=== PATIENT | female | born 1995 | race African-American/Black ===

== ENCOUNTER 2021-05-03 17:15 | Inpatient (IN) | payer BC ==
[2021-05-03] MEDS ORDERED: DEXTROSE 5%-LACTATED RINGERS 1,000 ML IV SCH (17:45)
[2021-05-03] MEDS: DEXTROSE 5%-LACTATED RINGERS 1,000 ML IV SCH ×2 (18:40→20:15)
[2021-05-03] MEDS ORDERED: PROMETHAZINE HCL 25 MG/1 ML VIAL IVPUSH ONE (19:37)
[2021-05-03] MEDS ORDERED: BUTORPHANOL TARTRATE 2 MG/ML VIAL IVPB ONE (19:37)
[2021-05-03 19:49] LABS: BASO % 0.2 % (0-2.0); EOS % 0.5 % (0-4.5); HEMATOCRIT 31.1 % (32.4-45.2); HEMOGLOBIN 10.7 GM/dL (10.7-15.3); LYMPH % 11.6 % (8-40); MCH 30.9 pg (25.7-33.7); MCHC 34.3 g/dl (32.0-36.0); MEAN CELL VOLUME 89.9 fl (80-96); MEAN PLT VOLUME 7.5 fl (7.5-11.1); MONO % 11.5 % (3.8-10.2); NEUT % 76.2 % (42.8-82.8); PLATELET COUNT 237 10^3/uL (134-434); RBC 3.46 M/mm3 (3.60-5.2); RDW 14.3 % (11.6-15.6)
[2021-05-03 19:58] LABS: INR 1.01 (0.83-1.09); PROTHROMBIN TIME (PATIENT) 12.2 SEC (9.7-13.0)
[2021-05-03 20:01] LABS: ACTIVATED PTT 24.9 SECONDS (25.2-36.5)
[2021-05-03] MEDS ORDERED: BUTORPHANOL TARTRATE 2 MG/ML VIAL ONE ×2 (20:01→23:17)
[2021-05-03] MEDS ORDERED: PROMETHAZINE HCL 25 MG/1 ML VIAL ONE (20:02)
[2021-05-03 20:09] LABS: CALCIUM 8.6 mg/dL (8.5-10.1)
[2021-05-03 20:13] LABS: CREATININE 0.6 mg/dL (0.55-1.3)
[2021-05-03 20:38] LABS: SYPHILIS W/ RPR CONF NON-REACTIVE (NONREACTIVE)
[2021-05-03 21:06] VITALS: BMI 32.0
[2021-05-03 21:07] LABS: HIV INTERPRETATION NEGATIVE (NEGATIVE)
[2021-05-03] MEDS ORDERED: BUTORPHANOL TARTRATE 1 MG/ML VIAL IVPB ONE (23:18)
[2021-05-04] MEDS ORDERED: OXYTOCIN 20 UNITS in 0.9% NS 20 UNIT/1,000 ML INFUS.BAG IV ONE ×2 (01:23→05:31)
[2021-05-04] MEDS ORDERED: LIDOCAINE HCL 1% PRESERVATIVE FREE - 30ML VIAL ONE (04:28)
[2021-05-04] MEDS ORDERED: IBUPROFEN 600 MG TABLET (FP) PO ONE (05:58)
[2021-05-04] MEDS ORDERED: ACETAMINOPHEN 325 MG TABLET (FP) ONE (05:58)
[2021-05-04] MEDS: IBUPROFEN 600 MG TABLET (FP) PO PRN ×2 (06:00→19:40)
[2021-05-04] MEDS: ACETAMINOPHEN 325 MG TABLET (FP) PO PRN ×2 (06:00→19:41)
[2021-05-04] MEDS ORDERED: WITCH HAZEL 50% (TUCKS) 40 PAD/JAR PAD TP PRN (06:09)
[2021-05-04] MEDS ORDERED: BENZOCAINE 28 GM HEMORRHOIDAL OINTMENT TP PRN (06:09)
[2021-05-04] MEDS ORDERED: OXYTOCIN 20 UNITS in 0.9% NS 1000 ML INFUS.BAG IV ONE (06:13)
[2021-05-04] MEDS: BENZOCAINE 20% 57 GM BOTTLE TP PRN (09:37)
[2021-05-04] MEDS: FERROUS SO4 325 MG TABLET (FP) PO SCH ×2 (09:37→22:57)
[2021-05-04] MEDS: PRENATAL VITAMINS W/ FOLIC ACID TABLET (FP) PO SCH (09:37)
[2021-05-04] MEDS ORDERED: BISACODYL 10 MG SUPP.RECT PR PRN (21:06)
[2021-05-04] MEDS ORDERED: METHYLERGONOVINE MALEATE 0.2 MG/1 ML AMP IM PRN (21:06)
[2021-05-05 08:40] LABS: BASO % 0.5 % (0-2.0); EOS % 0.7 % (0-4.5); HEMATOCRIT 29.3 % (32.4-45.2); HEMOGLOBIN 9.8 GM/dL (10.7-15.3); LYMPH % 18.7 % (8-40); MCH 30.6 pg (25.7-33.7); MCHC 33.4 g/dl (32.0-36.0); MEAN CELL VOLUME 91.7 fl (80-96); MEAN PLT VOLUME 7.9 fl (7.5-11.1); NEUT % 66.1 % (42.8-82.8); PLATELET COUNT 231 10^3/uL (134-434); RDW 14.5 % (11.6-15.6); WHITE BLOOD COUNT 10.4 K/mm3 (4.0-10.0)
[2021-05-05] MEDS: PRENATAL VITAMINS W/ FOLIC ACID TABLET (FP) PO SCH (09:37)
[2021-05-05] MEDS: FERROUS SO4 325 MG TABLET (FP) PO SCH ×3 (09:37→22:43)
[2021-05-05] MEDS: ACETAMINOPHEN 325 MG TABLET (FP) PO PRN (09:37)
[2021-05-05] MEDS: IBUPROFEN 600 MG TABLET (FP) PO PRN (09:37)
[2021-05-05] MEDS: BENZOCAINE 20% 57 GM BOTTLE TP PRN (17:21)
[2021-05-05] MEDS ORDERED: SENNOSIDES/DOCUSATE COMBO (SENNA PLUS) TABLET (UD) PO PRN (22:00)
[2021-05-06] MEDS: PRENATAL VITAMINS W/ FOLIC ACID TABLET (FP) PO SCH (09:50)
[2021-05-06] MEDS: IBUPROFEN 600 MG TABLET (FP) PO PRN (09:52)
[2021-05-06] MEDS: ACETAMINOPHEN 325 MG TABLET (FP) PO PRN (09:53)
[2021-05-06 10:22] VITALS: BP 110/68; PULSE 88; TEMP 98.6
[2021-05-06] MEDS: FERROUS SO4 325 MG TABLET (FP) PO SCH (10:28)
== END 2021-05-06 13:25 | disposition home or self-care (01) | DRG 807 ==
LOC: JDEL 17:15 → JLDR 19:00 → J3W 05-04 09:00
PROVIDERS: ADMIT Obstetrics & Gynecology; ATTEND Obstetrics & Gynecology
PROC: 10E0XZZ Delivery of Products of Conception, External Approach (ICD-10-PCS; principal; 2021-05-04)
PROC: 0HQ9XZZ Repair Perineum Skin, External Approach (ICD-10-PCS; 2021-05-04)
PROC: 10907ZC Drainage of Amniotic Fluid, Therapeutic from Products of Conception, Via Natural or Artificial Opening (ICD-10-PCS; 2021-05-04)
DX: O70.0 First degree perineal laceration during delivery (principal); Z37.0 Single live birth; Z3A.38 38 weeks gestation of pregnancy
CPT/HCPCS: 36415; 59409; 80048; 85025; 85610; 85730; 86780; 86850; 86900; 86901; 87389; C9803; U0003; U0005